=== PATIENT | female | born 1955 | race Caucasian/White ===

== ENCOUNTER 2017-02-05 15:35 | Emergency (ER) | payer OTHER ==
[~2017-02-05 15:35] MED LIST: NO HOME MEDS; VICODIN 5/500 T1 TAB PO
[2017-02-05] MEDS ORDERED: VIGAMOX3 M1 LEFT EYE (17:43)
== END 2017-02-05 17:51 ==
LOC: EDMED 15:35
DX: Z77.098 Contact with and (suspected) exposure to other hazardous, chiefly nonmedicinal, chemicals (principal); H57.12 Ocular pain, left eye